=== PATIENT | female | born 1935 | race Caucasian/White ===

== ENCOUNTER 2021-10-01 09:28 | Emergency (ER) | payer MEDICARE, OTHER ==
[~2021-10-01] VITALS: Ht 165.1 cm; Wt 102.1 kg
[~2021-10-01 09:28] MED LIST: ALLO100 PO; ASPI81CH PO; ASPI81EC; ATOR10 PO; ATORVASTATIN CA10 MG PO; BENA20; BENA20 PO; Benazepril HCl10 MG PO; CHOL10002 PO; Dyazide 37.5-21 EACH PO; HYDGUAL120 PO; Keflex500 MG PO; LEVSOD75 PO; LOSA50 PO; METO50 PO; METO50ER PO; METOPROLOL SUCC25 MG PO; NIFE10 PO; NITR.4SL; Prilosec Otc20 MG PO; RABE20; Triamterene W/1 EACH PO; Ventolin/Prove6.7 GM INH
[2021-10-01] MEDS ORDERED: VITAMIN D5000 UNIT PO (09:43)
[2021-10-01] MEDS ORDERED: PROBIOTIC1 EA13 PO (09:43)
[2021-10-01] MEDS ORDERED: NAPR500 PO (10:23)
[2021-10-01] MEDS ORDERED: LIDO700A20 TOP (10:23)
== END 2021-10-01 11:01 | disposition home or self-care (01) ==
LOC: ER 09:28
DX: M25.551 Pain in right hip (principal); I10 Essential (primary) hypertension; Z95.1 Presence of aortocoronary bypass graft; Z96.651 Presence of right artificial knee joint; Z79.899 Other long term (current) drug therapy; Z79.82 Long term (current) use of aspirin
CPT/HCPCS: 73502; A9270; J1885

== ENCOUNTER → 2022-03-12 | Outpatient (CLI) | payer MEDICARE, OTHER ==
[~2022-03-12] MED LIST changes: +LIDO700A20 TOP; +NAPR500 PO; +PROBIOTIC1 EA13 PO; +VITAMIN D5000 UNIT PO
== END ==
LOC: LAB SHORT 12:10 → PLD 12:10
DX: L43.9 Lichen planus, unspecified (principal)
CPT/HCPCS: 88305

== ENCOUNTER → 2023-01-19 | Outpatient (CLI) | payer MEDICARE, OTHER ==
[2023-01-19 14:11] LABS: Calcium, Blood 9.3 mg/dL (8.5-10.1); Creatinine, Blood 1.64 mg/dL (0.40-1.00); Potassium, Blood 4.2 mmol/L (3.5-5.5)
== END | disposition home or self-care (01) ==
LOC: LAB SHORT 13:00 → LAB 13:00
PROVIDERS: Physician Assistant
DX: E11.40 Type 2 diabetes mellitus with diabetic neuropathy, unspecified (principal); G62.9 Polyneuropathy, unspecified
CPT/HCPCS: 80048; 83036

== ENCOUNTER 2023-01-29 12:15 | Emergency (ER) | payer MEDICARE, OTHER ==
[~2023-01-29] VITALS: Ht 162.6 cm; Wt 99.8 kg
[2023-01-29 12:29] VITALS: BP 128/67
[2023-01-29] MEDS ORDERED: Robaxin750 MG PO (14:04)
[2023-01-29] MEDS ORDERED: GABA300 PO (14:04)
== END 2023-01-29 14:13 | disposition home or self-care (01) ==
LOC: ER 12:15
DX: M54.31 Sciatica, right side (principal); Z88.8 Allergy status to other drugs, medicaments and biological substances; Z79.899 Other long term (current) drug therapy; Z79.82 Long term (current) use of aspirin; I10 Essential (primary) hypertension
CPT/HCPCS: 96372; 99282-25; A9270; J1885

== ENCOUNTER 2025-03-07 01:16 | Emergency (ER) | payer MEDICARE, OTHER ==
[~2025-03-07] VITALS: Ht 165.1 cm; Wt 93.0 kg
[~2025-03-07 01:16] MED LIST changes: +GABA300 PO; +Robaxin750 MG PO
[2025-03-07 03:47] LABS: BASOPHILS ABSOLUTE AUTO 0.05 K/mm3 (0.00-0.23); BASOPHILS PERCENT AUTO 1 % (0-2); EOSINOPHILS ABSOLUTE AUTO 0.12 K/mm3 (0.00-0.68); EOSINOPHILS PERCENT AUTO 2 % (0-6); Hematocrit 38.3 % (33.0-51.0); Hemoglobin 13.0 g/dL (11.5-16.0); IMMATURE GRAN ABSOLUTE AUTO 0.03 K/mm3 (0.00-0.10); IMMATURE GRAN PERCENT AUTO 0 % (0-1); LYMPHOCYTES ABSOLUTE AUTO 2.19 K/mm3 (0.84-5.20); LYMPHOCYTES PERCENT AUTO 27 % (21-46); MONOCYTES ABSOLUTE AUTO 0.95 K/mm3 (0.16-1.47); MONOCYTES PERCENT AUTO 12 % (4-13); Mean Corpuscular HGB Conc 33.9 g/dL (31.5-36.5); Mean Corpuscular Volume 95 fL (80-100); NEUTROPHILS ABSOLUTE AUTO 4.65 K/mm3 (1.96-9.15); NEUTROPHILS PERCENT AUTO 58 % (41-73); NRBC ABSOLUTE 0.00 K/mm3 (0.00-0.02); NRBC Auto 0.0 /100 WBC (0.0-0.2); Platelet Count 211 K/mm3 (150-400); RDW Coefficient Variation 13.6 % (11.7-14.2); RDW Standard Deviation 48.1 fL (35.1-46.3)
[2025-03-07 04:04] LABS: Thyroid Stimulating Hormone 1.92 uIU/mL (0.360-4.800)
[2025-03-07 04:14] LABS: Alanine Aminotransfer (ALT/SGP 19.0 U/L (12-78); Albumin, Blood 3.7 g/dL (3.4-5.0); Albumin/Globulin Ratio 1.2 (0.8-1.8); Aspartate Aminotrans (AST/SGOT 18.0 U/L (12-37); Bilirubin, Total 0.6 mg/dL (0.1-1.0); Blood Urea Nitrogen 39.0 mg/dL (8-24); CO2, Blood 27.0 mmol/L (21-32); Calcium, Blood 10.0 mg/dL (8.5-10.1); Chloride, Blood 102.0 mmol/L (98-108); Creatinine, Blood 1.76 mg/dL (0.40-1.00); Globulin, Blood 3.0 g/dL (2.2-4.0); Glucose, Blood 130.0 mg/dL (70-99); Sodium, Blood 137.0 mmol/L (136-145); Total Protein, Blood 6.7 g/dL (6.4-8.2)
[2025-03-07 04:15] LABS: Anion Gap 12.0 mmol/L (3-11); Potassium, Blood 3.6 mmol/L (3.5-5.5)
[2025-03-07 04:55] VITALS: BP 171/118
== END 2025-03-07 04:56 | disposition home or self-care (01) ==
LOC: ER 01:16
PROVIDERS: Emergency Medicine
DX: I10 Essential (primary) hypertension (principal); I48.0 Paroxysmal atrial fibrillation; Z88.8 Allergy status to other drugs, medicaments and biological substances; Z79.01 Long term (current) use of anticoagulants; Z79.82 Long term (current) use of aspirin; Z79.890 Hormone replacement therapy; Z79.899 Other long term (current) drug therapy
CPT/HCPCS: 80053; 84443; 84484; 85025; 93005; 93010; 99283-25